=== PATIENT | female | born 1930 | race Caucasian/White ===

== ENCOUNTER 2019-11-20 21:40 | Emergency (ER) | payer MEDICARE ==
[~2019-11-20] VITALS: Ht 160 cm; Wt 85.6 kg
[2019-11-20 21:42] VITALS: BP 152/90
[2019-11-20] MEDS ORDERED: DIPH,PERTUSS(ACELL),TET VAC/PF 0.5 ML IM-VACC ONE ×2 (22:11→22:30)
[2019-11-20] MEDS ORDERED: LIDOCAINE-MPF 2% ,5ML ONE ×2 (22:13→23:01)
[2019-11-20] MEDS ORDERED: LIDOCAINE-MPF 2% ,5ML SQ ONE (22:30)
--- NOTE | 2019-11-20 22:36 | NUR ---
PROVIDER AT BEDSIDE FOR SUTURES AT THIS TIME.
== END 2019-11-21 00:09 | disposition home or self-care (01) ==
LOC: ED 22:00
DX: S06.0X0A Concussion without loss of consciousness, initial encounter (principal); S01.01XA Laceration without foreign body of scalp, initial encounter; I10 Essential (primary) hypertension; W01.0XXA Fall on same level from slipping, tripping and stumbling without subsequent striking against object, initial encounter; Y93.89 Activity, other specified; Y92.009 Unspecified place in unspecified non-institutional (private) residence as the place of occurrence of the external cause; Y99.8 Other external cause status
CPT/HCPCS: 12002; 70450; 90471; 90715; 99284